=== PATIENT | female | born 1975 | race Caucasian/White ===

== ENCOUNTER 2021-07-31 19:31 | Emergency (ER) | payer OTHER ==
[2021-07-31 19:46] VITALS: BP 139/83; PULSE 66; TEMP 97; BMI 42.0
[2021-07-31] MEDS ORDERED: BACITRACIN 15 GM TUBE TOPICAL OINTMENT ONE (20:04)
== END 2021-08-01 00:03 | disposition home or self-care (01) ==
LOC: JER 19:31 → JERFT 19:31
DX: T21.24XA Burn of second degree of lower back, initial encounter (principal)
CPT/HCPCS: 99283-25